=== PATIENT | female | born 1950 | race Caucasian/White ===

== ENCOUNTER 2019-05-22 08:58 | Emergency (ER) | payer MEDICARE ==
[2019-05-22] MEDS ORDERED: METOCLOPRAMIDE 5 MG/ML 2 ML VIAL IVP STA (09:28)
[2019-05-22] MEDS ORDERED: diphenhydrAMINE 50 MG/ML 1 ML VIAL IVP STA (09:28)
[2019-05-22] MEDS ORDERED: GLUCAGON 1 MG/ML VIAL IVP STA (09:28)
--- NOTE | 2019-05-22 09:47 | ED ---
Skin/Abscess/FB HPI - General Chief complaint: Skin/Abscess/Foreign Body Stated complaint: Pill lodged in throat Time Seen by Provider: 05/22/19 09:27 Source: patient, RN notes reviewed Mode of arrival: ambulatory Limitations: no limitations - History of Present Illness Initial comments: 69-year-old female presents emergency from chief complaint of vitamin tablet lodged in her throat. Patient states that she swelling around 7 AM this morning states that she cannot get any fluids down. Patient states that she's bringing up all of her secretions. She denies any shortness of breath. Patient states that she's never had any issues like this in the past. Denies any recent sore throat no fevers or chills. - Related Data Allergies Allergy/AdvReac Type Severity Reaction Status Date / Time Sulfa (Sulfonamide Allergy Anaphylaxis Verified 05/22/19 09:06 Antibiotics) Review of Systems ROS Statement: Those systems with pertinent positive or pertinent negative responses have been documented in the HPI. ROS Other: All systems not noted in ROS Statement are negative. Past Medical History Past Medical History: No Reported History History of Any Multi-Drug Resistant Organisms: None Reported Past Surgical History: No Surgical Hx Reported Past Psychological History: No Psychological Hx Reported Smoking Status: Never smoker Past Alcohol Use History: None Reported Past Drug Use History: None Reported General Exam Limitations: no limitations General appearance: alert, in no apparent distress Head exam: Present: atraumatic, normocephalic, normal inspection Eye exam: Present: normal appearance, PERRL, EOMI. Absent: scleral icterus, conjunctival injection, periorbital swelling ENT exam: Present: normal exam, mucous membranes moist Neck exam: Present: normal inspection. Absent: tenderness, meningismus, lymphadenopathy Respiratory exam: Present: normal lung sounds bilaterally. Absent: respiratory distress, wheezes, rales, rhonchi, stridor Cardiovascular Exam: Present: regular rate, normal rhythm, normal heart sounds. Absent: systolic murmur, diastolic murmur, rubs, gallop, clicks Neurological exam: Present: alert Skin exam: Present: warm, dry, intact, normal color. Absent: rash Course Vital Signs 05/22/19 09:05 Temperature 97.6 F Pulse Rate 101 H Respiratory 20 Rate Blood Pressure 171/99 O2 Sat by Pulse 99 Oximetry Medical Decision Making - Medical Decision Making 69-year-old female presented for a pill lodged in her throat. Patient was given glucagon and was able to swallow fluids after. She had a has no complaints of the pain. Patient we discharge. Disposition Clinical Impression: Esophageal foreign body Disposition: HOME SELF-CARE Condition: Stable Instructions (If sedation given, give patient instructions): Esophageal Foreign Body (ED) Additional Instructions: Please return to the Emergency Department if symptoms worsen or any other concerns. Is patient prescribed a controlled substance at d/c from ED?: No Referrals: Carlyn Malin MD [Primary Care Provider] - 1-2 days Time of Disposition: 11:03
[2019-05-22 11:39] VITALS: BP 121/75; PULSE 79; RESP 18; TEMP 98.2
== END 2019-05-22 11:39 | disposition home or self-care (01) ==
LOC: EC 08:58
DX: T18.198A Other foreign object in esophagus causing other injury, initial encounter (principal); Z88.2 Allergy status to sulfonamides
CPT/HCPCS: 99283; 96374; 96375 ×2; J1200; J1610; J2765